=== PATIENT | male | born 1970 | race Two or more races ===

== ENCOUNTER → 2025-07-03 | Outpatient (CLI) | payer OTHER, SELFPAY ==
--- NOTE | 2025-07-03 15:32 | XR_ITS ---
Examination: Hand, left 3 views Technique: Hand AP, oblique, lateral 3 views Date and time of exam: July 03, 2025, 1542 hours INDICATIONS: Mass between the fourth and fifth digits this week FINDINGS: Mild extra-articular bone demineralization. No fracture or dislocation. Old ununited ulnar styloid tip fracture No bony exostosis IMPRESSION: No acute fracture. No bony exostosis Consider ultrasound soft tissue follow-up of any palpable abnormality between the fourth and fifth digits
--- NOTE | 2025-07-03 15:32 | XR_ITS ---
Examination: Wrist, left 3 views Technique: Wrist AP, oblique, lateral 3 views Date and time of exam: July 03, 2025, 1542 hours INDICATIONS: Possible cyst between the fourth and fifth digits this week FINDINGS: Moderate narrowing radiocarpal joint No fracture or dislocation. No cortical bone destruction 2 mm bony exostosis off the proximal fifth metacarpal on the fourth digit side IMPRESSION: No cortical bone destruction Minimal 2 mm bony exostosis off the base of the fifth metacarpal
== END | disposition home or self-care (01) ==
LOC: CDIM 15:15
PROVIDERS: PCP Registered Nurse Pediatrics; Referring Provider Nurse Practitioner Gerontology; Visit Provider Nurse Practitioner Gerontology
DX: R22.32 Localized swelling, mass and lump, left upper limb (principal); M89.8X8 Other specified disorders of bone, other site
CPT/HCPCS: 73110; 73130

== ENCOUNTER → 2025-08-12 | Outpatient (CLI) | payer OTHER, SELFPAY ==
--- NOTE | 2025-08-12 15:00 | XR_ITS ---
Examination: MRI left hand without contrast Date and time of exam: August 12, 2025, 1550 hours INDICATION: Palpable lump left hand between the fifth and fourth digits 1.5 years Technique: Multiple MRI axial and sagittal sections lumbar spine. Sagittal T2-weighted images, TR 3500, TE 118 T1 weighted transverse sections, TR 688 T8.5, T2-weighted sagittal sections T1 weighted sagittal sections TR 621, TE 30 T2 axial sections, TR 4, 190, TE 84. Findings: Soft tissue mass with increased signal on the T2-weighted images in the dorsal soft tissue between the fourth and fifth digits at the level of the proximal phalanges This mass measures 9 x 6 x 8 mm There is no cortical erosion of the adjacent phalanges No endosteal scalloping I do not have postcontrast images for assessment of the cystic mass IMPRESSION: 9 x 6 x 8 mm predominantly cystic mass in the soft tissue dorsal between the fourth and fifth digits as above Recommend this patient return for postcontrast images to further assess this mass
== END | disposition home or self-care (01) ==
PROVIDERS: PCP Surgery; Referring Provider Surgery; Visit Provider Surgery
DX: M25.842 Other specified joint disorders, left hand (principal)
CPT/HCPCS: 73219; A9577